=== PATIENT | male | born 1980 | race Caucasian/White ===

== ENCOUNTER 2022-10-05 16:37 | Emergency (ER) | payer MEDICAID, SELFPAY ==
[2022-10-05 16:57] VITALS: BP 141/88; PULSE 116; RESP 20; TEMP 36.5; O2SAT 98
[2022-10-05 17:04] VITALS: BP 150/94; PULSE 114; RESP 18; TEMP 36.9; O2SAT 99; BMI 31.8
[2022-10-05 17:19] VITALS: BP 150/94; PULSE 109; RESP 18; TEMP 36.9; O2SAT 98
[2022-10-05] MEDS: ondansetron HCL 4 MG/2 ML VIAL IVPUSH (17:49)
[2022-10-05] MEDS: LORazepam 2 MG/ML VIAL IVPUSH (17:49)
[2022-10-05 18:04] LABS: MANUAL DIFF FLAG NO
[2022-10-05 18:11] LABS: Basophils Absolute Auto 0.1 X10*3/uL (0.0-0.2); Basophils Percent Auto 0.8 % (0-2); Eosinophils Percent Auto 0.2 % (0-4); Hematocrit 40.6 % (42.0-52.0); Hemoglobin 14.2 g/dl (14.0-18.0); Imm Gran Abs Auto 0.03 X10*3/uL (0.00-0.03); Imm Gran Pct Auto 0.4 % (0.0-0.4); Lymphocytes Absolute Auto 0.4 X10*3/uL (1.2-4.9); Lymphocytes Percent Auto 4.8 % (20-40); Mean Corpuscular Hemoglobin 30.3 pg (27.0-33.0); Mean Corpuscular Volume 86.6 fL (80.0-98.0); Mean Platelet Volume 9.4 fL (9.4-12.4); Monocytes Absolute Auto 0.5 X10*3/uL (0.1-1.2); Monocytes Percent Auto 6.3 % (2-11); Neutrophils Absolute Auto 7.5 x10*3/uL (2.0-8.3); Neutrophils Percent Auto 87.5 % (45-73); Platelet Count 263 X10*3/uL (160-400); Red Blood Count 4.69 X10*6/uL (4.60-5.80); White Blood Count 8.6 X10*3/uL (4.8-10.8)
[2022-10-05 18:23] LABS: Alanine Aminotransferase 70 U/L (0-40); Albumin Level 4.7 g/dL (3.5-5.0); Alkaline Phosphatase 90 U/L (39-117); Anion Gap 19 (12-20); Aspartate Amino Transferase 44 U/L (5-37); Bilirubin Total 0.9 mg/dL (0.0-1.0); Blood Urea Nitrogen 10 mg/dL (9-16); COVID-19 Test Negative (Negative); Calcium 9.9 mg/dL (8.4-10.2); Carbon Dioxide 22 mmol/L (22-29); Chloride 104 mmol/L (96-108); Estimated Glomerular Filt Rate > 60; Glucose Random 109 mg/dL (60-115); IDNOW Serial# 08D9AD1C; Lipase 9 U/L (8-78); Magnesium 1.8 mg/dL (1.6-2.6); Potassium 3.7 mmol/L (3.3-5.1); Sodium 141 mmol/L (135-145); Total Protein 8.3 g/dL (6.5-8.0)
--- NOTE | 2022-10-05 18:46 | ED.GENADULT ---
HPI - General Adult General Chief complaint: Nausea/Vomiting/Diarrhea Stated complaint: ETOH WITHDRAWAL NAUSEA VOMITING Time Seen by Provider: 10/05/22 17:15 Source: patient Mode of arrival: ambulatory Limitations: no limitations History of Present Illness HPI narrative: 42 yold male with pmh of alcohol abuse presents to the ED for alcohol withdrawal. patient states he went on a drinking binge and last binge and last drink was 07:00 this morning. Patient states since then having tremors, nausea, and vomiting. Patient states history of alcohol withdrawal symptoms in the past and is having similar symptoms. Patient denies having seizures in the past with alcohol withdrawal. Patient denies any chest pain or shortness of breath. Related Data Allergies Allergy/AdvReac Type Severity Reaction Status Date / Time No Known Allergies Allergy Unverified 11/02/19 16:25 Review of Systems Review of Systems: Tremors nausea vomiting Yes all other systems are reviewed and are negative [facility] Social History Social History Advance Directives: No Advance Directives Information Provided: Yes Physical Exam ED Vital Signs: Vital Signs - 24 hr 10/05/22 16:57 10/05/22 17:04 10/05/22 17:19 Temperature 97.7 F 98.5 F 98.5 F Pulse Rate 116 H 114 H 109 H Respiratory Rate 20 18 18 Blood Pressure 141/88 H 150/94 H 150/94 H Pulse Oximetry 98 99 98 Oxygen Delivery Method Room Air Room Air Room Air 10/05/22 22:00 Temperature Pulse Rate 102 H Respiratory Rate 15 Blood Pressure 145/96 H Pulse Oximetry 100 Oxygen Delivery Method Room Air BMI result Body Mass Index 31.8 Const General: cooperative, healthy appearing, comfortable, no acute distress, well developed, alert, awake and Physically active Orientation/consciousness: oriented to person, oriented to place, oriented to time and patient oriented x3 HENMT Head: Yes normal to inspection, Yes No palpable skull fracture present, Yes normocephalic and Yes atraumatic Eyes General: appearance normal, both eyes and all related structures Neck Neck: Yes normal visual inspection, Yes full ROM, Yes no lymphadenopathy, Yes no meningeal signs, Yes trachea midline, Yes supple, No anterior neck swelling and No tender Chest Chest palpation & inspection: normal inspection of the chest and normal palpation of entire chest wall Resp Effort & Inspection: normal respiratory effort and able to speak in complete sentences Auscultation: clear to auscultation bilaterally Cardio Jugular venous distension: no JVD Heart sounds: S1 normal heart sound present and S2 normal heart sound present GI Inspection: Yes normal to inspection and No abdominal wall ecchymosis Palpation (GI): Soft to palpation, not firm, nontender, no guarding and not rigid General: No CVA tenderness and Yes no CVA tenderness Back/Spine/Pelvis Back: no CVA tenderness, No CVA tenderness and No back tenderness Skin General skin exam: no rashes or lesions noted, elasticity normal and turgor normal Neuro Other: Positive for tremors of extremities General: oriented to person, oriented to place, oriented to time, patient oriented x3, gait normal, tone normal, moves all extremities, Normal light touch and pain sensation, no meningeal signs, no focal motor deficits, CN's II-XI intact bilaterally and normal sensation to monofilament Extrem General: Yes normal to inspection and Yes full ROM Psych Appearance: grossly normal, well kempt and not disheveled Medications Administered Discontinued Medications Generic Name Dose Route Start Last Admin Trade Name Freq PRN Reason Stop Dose Admin Sodium Chloride 1,000 mls @ 999 mls/hr 10/05/22 18:56 10/05/22 20:28 Ns IV 10/05/22 19:56 999 mls/hr .Q1H1M STA Administration Lorazepam 2 mg 10/05/22 17:34 10/05/22 17:49 Lorazepam 2 Mg/Ml Vial IVPUSH 10/05/22 17:35 2 mg ONCE ONE Administration Ondansetron HCl 4 mg 10/05/22 17:34 10/05/22 17:49 Ondansetron Hcl 4 Mg/2 Ml Vial IVPUSH 10/05/22 17:35 4 mg ONCE ONE Administration Medical Decision Making Medical Decision Making [facility] Narrative: 42-year-old male history of alcohol abuse presents to the ED for alcohol withdrawal. Patient last drink was 07:00 this morning patient having tremors and is tachycardic. Patient states similar symptoms to prior alcohol withdrawal symptoms in the past. Patient will be given Ativan and Zofran and fluids. 9:50pm: Patient states no longer in withdrawal and feels better. Patient would like to be discharged. Patient no longer has tremors. Heart rate on monitor 98. Electrolytes normal. Negative for alcoholic ketoacidosis. Patient states he has follow-up with detox partial hospitalization program tomorrow for his alcohol abuse. Mother confirms story. Differential Diagnosis Differential Diagnoses: The differential diagnosis associated with the presentation includes (Alcohol withdrawal, pancreatitis, alcoholism, delirium tremors, hypo magnesemia) Admission/Observation Consideration of admission/observation: Escalation of care including admission/observation considered Lab Data MDM Lab Attestation statement: I reviewed the patient's lab results. 10/05/22 17:55 10/05/22 17:55 Labs: Lab Results 10/05/22 10/05/22 10/05/22 Range/Units 17:55 17:55 17:55 WBC 8.6 (4.8-10.8) X10*3/uL RBC 4.69 (4.60-5.80) X10*6/uL Hgb 14.2 (14.0-18.0) g/dl Hct 40.6 L (42.0-52.0) % MCV 86.6 (80.0-98.0) fL MCH 30.3 (27.0-33.0) pg MCHC 35.0 (31.0-36.0) g/dl RDW 13.0 (11.0-16.0) % Plt Count 263 (160-400) X10*3/uL MPV 9.4 (9.4-12.4) fL Immature Gran % (Auto) 0.4 (0.0-0.4) % Neut % (Auto) 87.5 H (45-73) % Lymph % (Auto) 4.8 L (20-40) % [place] % (Auto) 6.3 (2-11) % Eos % (Auto) 0.2 (0-4) % Baso % (Auto) 0.8 (0-2) % Lymph # (Auto) 0.4 L (1.2-4.9) X10*3/uL [place] # (Auto) 0.5 (0.1-1.2) X10*3/uL Eos # (Auto) 0.0 (0.0-0.4) X10*3/uL Baso # (Auto) 0.1 (0.0-0.2) X10*3/uL Abs Immat Gran (auto) 0.03 (0.00-0.03) X10*3/uL Absolute Neuts (auto) 7.5 (2.0-8.3) x10*3/uL Absolute Nucleated RBC 0.000 (0.0-0.012) X10*3/uL Nucleated RBC % (auto) 0.0 (0.0-0.2) /100WBC Sodium 141 (135-145) mmol/L Potassium 3.7 (3.3-5.1) mmol/L Chloride 104 (96-108) mmol/L Carbon Dioxide 22 (22-29) mmol/L Anion Gap 19 (12-20) BUN 10 (9-16) mg/dL Creatinine 0.78 (0.5-1.4) mg/dL Estim Creat Clear Calc 118.0 Estimated GFR > 60 Random Glucose 109 (60-115) mg/dL Calcium 9.9 (8.4-10.2) mg/dL Magnesium 1.8 (1.6-2.6) mg/dL Total Bilirubin 0.9 (0.0-1.0) mg/dL AST 44 H (5-37) U/L ALT 70 H (0-40) U/L Alkaline Phosphatase 90 (39-117) U/L Total Protein 8.3 H (6.5-8.0) g/dL Albumin 4.7 (3.5-5.0) g/dL Lipase 9 (8-78) U/L COVID-19 ([facility]) Negative (Negative) COVID-19 Clin Com See Note Independent Historian Clinical information obtained from an independent historian. History obtained from or confirmed by: Parent (mother) External Record Review External record reviewed: Other (Prior ED visit) Chronic Conditions Patient?s care impacted by: Other (Alcohol abuse) Discharge Plan Discharge Clinical Impression: Alcohol abuse, Alcohol withdrawal Patient Disposition: Home, Self-Care Instructions: Abuse of Alcohol (DC), Alcohol Withdrawal (ED) Additional Instructions: Return to the ED for tremors, nausea, vomiting, altered mental status, seizure, chest pain, shortness of breath, headache, abdominal pain or any other concerning symptoms. Please follow-up with your partial hospitalization detox program tomorrow which I have appointment with. Interventions: ED Discharge Assessment Last Done: 10/05/22 22:13 Discharge Date/Time: 10/05/22 22:16 Print Language: [place]
[2022-10-05] MEDS: 0.9 % Sodium Chloride 1,000 ML 999 ML IV (20:28)
[2022-10-05 22:00] VITALS: BP 145/96; PULSE 102; RESP 15; O2SAT 100
== END 2022-10-05 22:16 | disposition home or self-care (01) ==
PROVIDERS: Physician Assistant; Emergency Provider Emergency Medicine; PCP Family Medicine
DX: F10.139 Alcohol abuse with withdrawal, unspecified (principal); Y90.9 Presence of alcohol in blood, level not specified; Z20.822 Contact with and (suspected) exposure to COVID-19; Z20.828 Contact with and (suspected) exposure to other viral communicable diseases; Z79.899 Other long term (current) drug therapy
CPT/HCPCS: 36415; 80053; 83690; 83735; 85025; 87635; 96374; 96375; 99284; J2060; J2405